=== PATIENT | female | born 1940 | race Caucasian/White ===

== ENCOUNTER 2018-12-20 01:51 | Outpatient (CLI) | payer MEDICARE, SELFPAY ==
[2018-12-20 13:03] LABS: ALT 36 U/L (12-78); AST 25 U/L (15-37); Albumin 3.6 g/dL (3.4-5.0); Alkaline Phosphatase 89 U/L (46-116); Anion Gap 8.7 mmol/L (3-11); Bilirubin, Total 0.5 mg/dL (0.2-1.0); CO2 25.3 mmol/L (21.0-32.0); Calcium 9.1 mg/dL (8.5-10.1); Chloride 102 mmol/L (98-107); Glucose 91 mg/dL (70-100); Potassium 4.3 mmol/L (3.5-5.1); Sodium 136 mmol/L (136-145); Total Protein 6.7 g/dL (6.4-8.2)
[2018-12-20 13:31] LABS: BUN 22 mg/dL (7-18)
== END 2018-12-20 02:11 ==
PROVIDERS: PCP Family Medicine; Visit Provider Family Medicine
DX: I10 Essential (primary) hypertension (principal)
CPT/HCPCS: 36415; 80053

== ENCOUNTER 2019-12-18 21:42 | Outpatient (REF) | payer MEDICARE, SELFPAY ==
[2019-12-18 20:37] LABS: ALT 31 U/L (14-59); AST 23 U/L (15-37); Albumin 4.2 g/dL (3.4-5.0); Alkaline Phosphatase 82 U/L (46-116); Anion Gap 9.9 mmol/L (3-11); BUN 19 mg/dL (7-18); Bilirubin, Total 1.1 mg/dL (0.2-1.0); CO2 28.1 mmol/L (21.0-32.0); CREATININE 1.02 mg/dL (0.55-1.02); Calcium 9.6 mg/dL (8.5-10.1); Chloride 102 mmol/L (98-107); Estimated GFR 52.55 (mL/min/1.73m2); Glucose 101 mg/dL (74-106); Potassium 4.1 mmol/L (3.5-5.1); Sodium 140 mmol/L (136-145); Total Protein 7.4 g/dL (6.4-8.2)
== END 2019-12-18 22:02 ==
LOC: LBN 21:42
PROVIDERS: PCP Family Medicine; Visit Provider Family Medicine
DX: I10 Essential (primary) hypertension (principal)
CPT/HCPCS: 80053

== ENCOUNTER 2021-06-17 02:33 | Outpatient (CLI) | payer MEDICARE, SELFPAY ==
[2021-06-17 16:14] LABS: ALT 24 U/L (14-59); AST 9 U/L (15-37); Albumin 3.9 g/dL (3.4-5.0); Alkaline Phosphatase 77 U/L (46-116); BUN 20 mg/dL (7-18); Bilirubin, Total 0.3 mg/dL (0.2-1.0); CREATININE 0.8 mg/dL (0.55-1.02); Calcium 9.2 mg/dL (8.5-10.1); Chloride 105 mmol/L (98-107); Glucose 88 mg/dL (74-106); Potassium 4.3 mmol/L (3.5-5.1); Sodium 142 mmol/L (136-145); Total Protein 6.8 g/dL (6.4-8.2)
== END 2021-06-17 02:34 | disposition home or self-care (01) ==
LOC: LBO 02:33
PROVIDERS: PCP Family Medicine; Visit Provider Family Medicine
DX: I10 Essential (primary) hypertension (principal)
CPT/HCPCS: 36415; 80053

== ENCOUNTER 2022-03-18 03:19 | Outpatient (CLI) | payer MEDICARE, SELFPAY ==
[2022-03-18 12:57] LABS: ALT 24 U/L (14-59); AST 23 U/L (15-37); Albumin 3.8 g/dL (3.4-5.0); Alkaline Phosphatase 78 U/L (46-116); Anion Gap 8.6 mmol/L (3-11); BUN 18 mg/dL (7-18); Bilirubin, Total 0.9 mg/dL (0.2-1.0); CO2 29.4 mmol/L (21.0-32.0); Calcium 9.5 mg/dL (8.5-10.1); Chloride 103 mmol/L (98-107); Estimated GFR 57.31 (mL/min/1.73m2); Glucose 117 mg/dL (74-106); Potassium 4.2 mmol/L (3.5-5.1); Sodium 141 mmol/L (136-145); Total Protein 7.6 g/dL (6.4-8.2)
== END 2022-03-18 03:20 | disposition home or self-care (01) ==
LOC: LOS 03:19
PROVIDERS: PCP Family Medicine; Visit Provider Family Medicine
DX: I10 Essential (primary) hypertension (principal)
CPT/HCPCS: 36415; 80053

== ENCOUNTER 2022-12-27 10:59 | Emergency (ER) | payer MEDICARE, SELFPAY ==
[2022-12-27] VITALS (33 sets, daily range): BP systolic 130–166; BP diastolic 56–72; PULSE 59–88; RESP 20–32; TEMP 38.1–38.4; O2SAT 91–97
--- NOTE | 2022-12-27 11:00 | DI.CT_ITS ---
Exam(s) CT LUMBAR SPINE SI JOINTS WO EXAM: CT LUMBAR SPINE SI JOINTS WO CLINICAL HISTORY: fall. TECHNIQUE: Imaging Protocol: Axial computed tomography images with coronal and sagittal reformatted images were created and reviewed COMPARISON: CR RT HIP COMPLETE AP PELVIS from 09/19/2014 FINDINGS: Bones: The last intervertebral disc space is designated the L5/S1 level for the numbering purpose of this examination. The vertebral body heights are well maintained. Alignment is satisfactory. No fracture is seen. T12-L1: Mild disc bulging. L1-2: Mild loss of disc height. Endplate osteophytes projecting mainly anteriorly. Mild disc bulgi ng. L2-3: Loss of disc height. Endplate osteophytes and sclerosis. L3-4: Mild to moderate loss of disc height. Mild disc bulging. Facet degenerative changes. L4-5: Not disc bulging. Prominent facet degenerative changes causing mild spondylolisthesis. Facet encroachment into the central canal, causing moderate to severe central canal stenosis. L5-S1: Minimal disc bulging. The visualized SI joints and sacrum are will maintained. Right hip prosthesis partially included in field of view Soft Tissues: The paraspinal soft tissues are unremarkable. Moderate aortic calcification. No bailey dence of aneurysm. IMPRESSION: No evidence of fracture. Multilevel degenerative disc changes. Moderate to severe central canal stenosis mainly secondary to facet encroachment into the central can al at L4-5. RADIATION DOSE DELIVERED: 630.21mGy.cm Total DLP DATA REPOSITORY: All CT scans at this facility are submitted to the National Radiology Data Registry (NRDR) Dose Index Registry (DIR) with the [employer] ([employer]). RADIATION OPTIMIZATION: All CT scans at this facility use at least one of these dose optimization te chniques: automated exposure control; mA and/or kV adjustment per patient size (includes targeted exa ms where dose is matched to clinical indication); or iterative reconstruction.
[2022-12-27 11:34] LABS: Lactate 1.3 mmol/L (0.6-1.4)
--- NOTE | 2022-12-27 11:36 | W.ED.GENAD ---
Discharge Plan Disposition Patient Disposition: Home Discharge Details Clinical Impression: Multiple falls, Acute UTI, Generalized muscle weakness Primary Care Provider: Deborah Henry ED Provider: Sekou Feldman Home Meds and New Rx's Prescriptions: New cephalexin 500 mg capsule 500 mg PO BID Qty: 10 0RF Continued estradiol [Estrace] 0.01 % (0.1 mg/gram) cream 1 g vaginal .twice weekly Qty: 42.5 4RF Rx Instructions: twice weekly Discharge Instructions Instructions: Urinary Tract Infection in Women (ED), Weakness (ED) Additional Instructions: As discussed please continue to monitor symptoms and return immediately to the emergency department for any new or significant worsening of your condition. If you continue to have generalized weakness or do not feel safe in your home please again consider returning to the emergency department for reassessment. Take antibiotics as prescribed and until fully completed. Referrals: Deborah Henry MD, MA [Primary Care Provider] - Discharge Data Discharge Date/Time-TO BE ENTERED AT DEPARTURE: 12/27/22 15:53 Medical Decision Making Patient presenting to the emergency department for chief complaint of generalized weakness for the past 3 days with fever and due to weakness has fallen 3 times at home. She has been able to get up on her own but due to the weakness she is presenting to the emergency department. Patient denies cough, chest pain, nasal congestion sore throat, denies headache, denies abdominal pain nausea vomiting or diarrhea. Does states she has had some ticks on her but denies any prolonged attachment. Or engorgement. Denies any rash. Physical exam shows tenderness to the lower lumbar spine sacrum and SI joints, clear lung sounds, normal HEENT exam, no focal neurological findings noted. Given patient's age we will check patient's labs and will give IV acetaminophen and small fluid bolus pending results due to patient being febrile while here. Reviewed patient's labs and CBC is overall unremarkable with no leukocytosis or significant shift, platelets are slightly low at 98 along with lymphocytes of 0.52 and monocytes of 0.05. CMP does show slightly low potassium at 3.4 and calcium of 8.2 which we will orally replete. BUN slightly elevated at 19 but again I feel that the fluid bolus will be appropriate. Patient does have elevated bilirubin slightly at 1.1, AST of 113 and ALT of 72. Patient does state that she does drink alcohol which I feel may be elevating these labs. At this time I doubt hepatitis given no abdominal pain nausea or vomiting. Patient's lactate is normal at 1.3 and procalcitonin was slightly elevated at 0.6. Urinalysis was received and while it was a contaminated specimen did show high concentration, leukocyte Estrace, and 5-10 white cells with few bacteria being noted. Was also noted some blood protein and ketones as well. I am concerned with UA findings that she may have a urinary tract infection causing the weakness. Given the elevated procalcitonin fever and UA findings will give patient 1 g of Rocephin and place patient on Keflex. Given no specific findings we will hold off on treating for any tickborne illness pending lab results. Patient was able to ambulate through the department and was steady on feet per patient and daughter and while I did offer patient admission patient states she would prefer to go home and monitor symptoms. Patient instructed on low threshold to return especially if she continues to fall or has any new or worsening symptoms. After discussion of diagnosis and plan of care patient and daughter has no further needs, questions, or concerns and states clear understanding to return to the emergency department for any worsening symptoms. This documentation was generated using [employer] dictation system, please disregard any oddities of phrase or misspellings. Imaging Data Radiologic Study: Attestation: I personally reviewed and interpreted this imaging study as follows: Imaging: CT Scan Radiologist's impression: Exam(s) a CT:CT lumbar spine & SI joints wo Exam(s) CT LUMBAR SPINE SI JOINTS WO EXAM: CT LUMBAR SPINE SI JOINTS WO CLINICAL HISTORY: fall. TECHNIQUE: Imaging Protocol: Axial computed tomography images with coronal and sagittal reformatted images were created and reviewed COMPARISON: CR RT HIP COMPLETE AP PELVIS from 09/19/2014 FINDINGS: Bones: The last intervertebral disc space is designated the L5/S1 level for the numbering purpose of this examination. The vertebral body heights are well maintained. Alignment is satisfactory. No fracture is seen. T12-L1: Mild disc bulging. L1-2: Mild loss of disc height. Endplate osteophytes projecting mainly anteriorly. Mild disc bulging. L2-3: Loss of disc height. Endplate osteophytes and sclerosis. L3-4: Mild to moderate loss of disc height. Mild disc bulging. Facet degenerative changes. L4-5: Not disc bulging. Prominent facet degenerative changes causing mild spondylolisthesis. Facet encroachment into the central canal, causing moderate to severe central canal stenosis. L5-S1: Minimal disc bulging. The visualized SI joints and sacrum are will maintained. Right hip prosthesis partially included in field of view Soft Tissues: The paraspinal soft tissues are unremarkable. Moderate aortic calcification. No evidence of aneurysm. IMPRESSION: No evidence of fracture. Multilevel degenerative disc changes. Moderate to severe central canal stenosis mainly secondary to facet encroachment into the central canal at L4-5. Lab Data Lab results reviewed: Yes I reviewed the patient's lab results. HPI General Mode of arrival: EMS. Date/Time Provider Initiated Documentation: 12/27/22 10:59. Limitations to Documentation: no limitations. Information obtained by: patient and RN notes reviewed. History of Present Illness 82 year old F presents to the emergency department with the chief complaint of Fever, generalized weakness, fall, described as mild, and is localized to the back and buttocks. Patient started experiencing this day(s) (3) and it has been constant. No relieving factors improve symptom(s), No exacerbating factors reported . Patient notes no other symptoms.. Patient did receive the following treatments prior to arrival, none Related Data Home Medications Medication Instructions Recorded Confirmed estradiol 0.01% (0.1 mg/gram) 1 g vaginal .twice weekly #42.5 09/28/22 09/28/22 vaginal cream (Estrace) grams cephalexin 500 mg capsule 500 mg PO BID #10 caps 12/27/22 Previous Rx's Medication Instructions Recorded estradiol 0.01% (0.1 mg/gram) 1 g vaginal .twice weekly #42.5 09/28/22 vaginal cream (Estrace) grams cephalexin 500 mg capsule 500 mg PO BID #10 caps 12/27/22 Allergies Allergy/AdvReac Type Severity Reaction Status Date / Time environmental allegies Allergy Uncoded 09/28/22 10:28 General Stated Complaint: Fever SANTO: 3 Review of Systems Constitutional Constitutional: Reports chills, Reports fever(s), Reports frequent falls, Denies headache(s), Reports malaise and Reports weakness ENT Ears, Nose, Mouth, and Throat: Denies dizziness, Denies headache(s), Denies nasal congestion and Denies sore throat Cardiovascular Cardiovascular: Denies chest pain, Denies syncope and Denies dyspnea Respiratory Respiratory: Denies chest congestion, Denies cough and Denies dyspnea Gastrointestinal Gastrointestinal: Denies abdominal pain, Denies diarrhea, Denies nausea and Denies vomiting Genitourinary Genitourinary: Denies difficulty voiding, Denies dysuria, Denies pelvic pain, Denies flank pain, Denies urinary incontinence and Denies urinary hesitancy Musculoskeletal Musculoskeletal: Reports back pain and Denies radiating pain into limb Integumentary/Breasts Skin/Breast: Denies unusual bruising and Denies wounds Neurologic Neurologic: Denies confusion, Denies dizziness, Denies syncope, Reports frequent falls, Denies headache(s), Denies localized weakness and Reports weakness Psychiatric Psychiatric: Denies confusion PFSH All Active Problems Weakness (Acute) Multiple falls (Acute) Acute UTI (Acute) Generalized muscle weakness (Acute) Sensorineural hearing loss, bilateral (Acute) Decreased hearing (Acute) Vaginal atrophy (Acute) Essential hypertension (Chronic) Hallux valgus with bunions (Chronic) RIGHT; bunionectomy 07/25/09 Hip arthritis (Chronic 09/25/14) replacement 2014 Hypercholesterolemia (Chronic) Shoulder pain (Chronic 10/05/07) left Status post bunionectomy (Chronic) Medical History Alcohol intake above recommended sensible limits Cataract (09/23/15) Tobacco use disorder Surgical History BUNIONECTOMY 07/25/09; right; Extraction of cataract 04/21/17 (L) EYE , Ectopic UNILAT SALPINGECTOMY Total replacement of hip DR. VALDIVIA Family History Mother , 62 Glioblastoma Father , 79 Essential hypertension Heart disease Myocardial infarction Sister No problems noted. Brother Alcohol abuse Heart disease Maternal Grandfather , 60+ Cancer Paternal Grandfather , 82 Essential hypertension Heart disease Maternal Grandmother , 89 Essential hypertension Heart disease Stroke Paternal Grandmother , 76 Essential hypertension Heart disease Stroke Brother No problems noted. Brother No problems noted. Social History Smoking/Tobacco Use Status: Former Tobacco Use Quit Date: 07/11/04 Tobacco: How many years used: 50 Second Hand Exposure: Yes Smoking risk assessment performed?: Yes Alcohol Intake: current Alcohol Intake frequency: a few times a month Drug use: Never Substance use type: former substance user Caregiver/Support person: No Household members: none Housing: house Communication Needs: Hard of Hearing Do you need help understanding health information?: Rarely Pets and animals: Yes Pets and animals: other Details: chipmunk Sexually active: No Current gender identity: male and decline to answer What is your relationship status?: How often do you talk on the phone with friends or family?: three or more times per week How often do you get together with friends or relatives?: three or more times per week How often do you attend oriental orthodox or christian services?: 4 or more times per year Do you belong to any clubs or organized social groups?: yes Panel score (0-1 are the most socially isolated patients): 3 What type of physical activity do you participate in: walking Duration: 60-90 minutes/day Frequency: 5-6 times per week Radha/Lutheran: Voodoo Special radha needs: No Seatbelt use: always Helmet use: No Drive intox or ride 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 Do you feel safe at home: Yes Do you feel safe in your relationship?: Yes Exam Const General: cooperative, comfortable and no acute distress Orientation: alert and awake HENMT Head: normal to inspection, normocephalic and atraumatic Ears: hearing grossly normal bilaterally and TM's normal bilaterally General nose exam: external nose normal Face and sinus: no erythema Mouth: oral mucosae normal, no drooling, no muffled voice and no trismus Throat: posterior oropharynx normal Neck Neck: normal visual inspection, full ROM, no lymphadenopathy, no meningeal signs, trachea midline and supple Resp Effort & Inspection: normal respiratory effort and able to speak in complete sentences Auscultation: clear to auscultation bilaterally Cardio Rate: regular rate Rhythm: regular rhythm Heart Sounds: S1 normal, S2 normal and normal S1 and S2 Back/Spine/Pelvis Thoracic/Lumbar Spine: lumbar spinal tenderness Pelvis: buttock tenderness and sciatic notch tenderness Skin General skin exam: no rashes or lesions noted and dry skin (warm) Neuro General: patient alert, patient awake, patient oriented x3, gait normal and moves all extremities Cognition: normal cognition Speech: speech normal Course Vital Signs Vital signs: Vital Signs Temperature 38.1 C H 12/27/22 11:01 Pulse 83 12/27/22 11:01 Respiratory Rate 20 12/27/22 11:01 Blood Pressure 156/72 H 12/27/22 11:01 Pulse Oximetry 95 12/27/22 11:01 Temperature 38.1 C H 12/27/22 11:01 Temperature Source Oral 12/27/22 11:01 Pulse 83 12/27/22 11:01 Respiratory Rate 20 12/27/22 11:01 Respiratory Effort Normal, Non-Labored 12/27/22 11:09 Blood Pressure 156/72 H 12/27/22 11:01 Blood Pressure Position Sitting 12/27/22 11:01 Pulse Oximetry 95 12/27/22 11:01 Pain Level 0 12/27/22 11:01 Lab/Test Results Lab/Test Results: Laboratory Tests Range/Units 12/27/22 11:24 VBG Lactate (0.6-1.4) mmol/L 1.3
[2022-12-27 11:39] LABS: HCT 40.7 % (36.0-46.0); HGB 14.3 g/dL (11.2-15.7); MCH 29.9 pg (27.0-33.0); MCHC 35.1 % (32.0-36.0); MCV 85 fL (80-95); MPV 10.6 fL (8.0-11.0); RBC 4.78 10^6/uL (3.93-5.22); RDW 13.1 % (11.7-14.6); RDW-SD 40.7 fL; WBC 5.24 10^3/uL (4.4-10.8)
[2022-12-27 11:55] LABS: Platelet Count 98 10^3/uL (130-400)
[2022-12-27 11:56] LABS: Absolute Basophil Count 0.05 10^3/uL (0.0-0.2); Absolute Lymphocyte Count 0.52 10^3/uL (1.2-3.4); Absolute Monocyte Count 0.05 10^3/uL (0.1-0.8); Absolute Neutrophil Count 4.61 10^3/uL (1.2-6.7); Atypical Lymphocytes % 1; Bands % 4; Diff Comment Manual Differential; RBC Morphology Normal
[2022-12-27 12:01] LABS: ALT 72 U/L (14-59); AST 113 U/L (15-37); Albumin 3.1 g/dL (3.4-5.0); Alkaline Phosphatase 82 U/L (46-116); Anion Gap 9.9 mmol/L (3-11); BUN 19 mg/dL (7-18); Bilirubin, Total 1.1 mg/dL (0.2-1.0); CO2 25.1 mmol/L (21.0-32.0); CREATININE 0.8 mg/dL (0.55-1.02); Calcium 8.2 mg/dL (8.5-10.1); Chloride 101 mmol/L (98-107); Estimated GFR 74.44 (mL/min/1.73m2); Glucose 107 mg/dL (74-106); Potassium 3.4 mmol/L (3.5-5.1); Sodium 136 mmol/L (136-145); Total Protein 6.3 g/dL (6.4-8.2)
[2022-12-27 12:30] LABS: Procalcitonin 0.6 ng/mL
[2022-12-27 12:35] LABS: COVID-19 PCR Negative (Negative); Influenza A PCR Negative (Negative); Influenza B PCR Negative (Negative); RSV PCR Negative (Negative)
[2022-12-27 12:36] LABS: Source Nasopharynx
[2022-12-27] MEDS: Calcium Carbonate *TUMS* 500 MG CHEW 1000 MG PO (13:00)
[2022-12-27] MEDS: Potassium Chloride 20 MEQ TABCR PO (13:00)
[2022-12-27 13:25] LABS: Bilirubin Moderate (Negative); Blood Small (Negative); Clarity Sl Cloudy (Clear); Glucose Negative (Negative); Ketones 15 mg/dL (Negative); Leukocyte Esterase Trace (Negative); Nitrite Negative (Negative); Specific Gravity >= 1.030 (1.005-1.025); pH 5.5 (5-8)
[2022-12-27 13:44] LABS: Bacteria Few HPF (Negative); C & S Indicated? No/Sq. Contamination; Crystals Negative HPF (Negative); Epithelial Cells Moderate HPF (Negative); Mucus Moderate (Negative)
[2022-12-27] MEDS: Normal Saline 500 ML IV (14:10)
[2022-12-27] MEDS: cefTRIAXone 1 GM/50 ML BAG IVPB (14:11)
[2022-12-29 11:33] LABS: Lyme Ab w Rflx to Lyme Confirm Negative (Negative)
[2022-12-31 08:29] LABS: B. miyamotoi PCR Negative (Negative); Babesia divergens/MO-1 Negative (Negative); Babesia duncani Negative (Negative); Babesia microti Negative (Negative); Ehrlichia chaffeensis Negative (Negative); Ehrlichia ewingii/canis Negative (Negative); Ehrlichia muris eauclairensis Negative (Negative)
[2022-12-31 09:01] LABS: Anaplasma phagocytophilum Positive (Negative)
--- NOTE | 2022-12-31 10:54 | W.ED.FU ---
Follow Up Plan: Contacted patient to discuss results from lab that showed anaplasmosis. Patient does state that she is feeling better but given that she is positive for anaplasmosis and was only prescribed Keflex for suspected UTI patient started on doxycycline. Patient to follow-up with primary care provider return for new or worsening symptoms.
== END 2022-12-27 15:53 | disposition home or self-care (01) ==
PROVIDERS: Emergency Provider Nurse Practitioner Family; PCP Family Medicine
DX: N39.0 Urinary tract infection, site not specified (principal); R53.1 Weakness; A79.82 Anaplasmosis [A. phagocytophilum]; R50.9 Fever, unspecified
CPT/HCPCS: 80053; 84145; 87637; 87798; 96365; 96367; 99284; 72131; 81003; 81015; 83605; 85025; 86618; J0131; J0696

== ENCOUNTER 2023-01-14 02:28 | Outpatient (CLI) | payer MEDICARE, SELFPAY ==
[2023-01-14 14:29] LABS: ESR 13 mm/hr (0-30); HCT 38.1 % (36.0-46.0); HGB 12.8 g/dL (11.2-15.7); MCH 29.6 pg (27.0-33.0); MCHC 33.6 % (32.0-36.0); MCV 88 fL (80-95); MPV 10.1 fL (8.0-11.0); Platelet Count 314 10^3/uL (130-400); RBC 4.32 10^6/uL (3.93-5.22); RDW 12.9 % (11.7-14.6); RDW-SD 41.6 fL; WBC 7.21 10^3/uL (4.4-10.8)
[2023-01-14 14:42] LABS: Bilirubin Negative (Negative); Blood Negative (Negative); Clarity Clear (Clear); Glucose Negative (Negative); Ketones Negative (Negative); Leukocyte Esterase Negative (Negative); Nitrite Negative (Negative); Specific Gravity 1.025 (1.005-1.025); Urobilinogen 0.2 mg/dL (Up to 0.2)
[2023-01-14 15:06] LABS: ALT 29 U/L (14-59); AST 19 U/L (15-37); Albumin 3.4 g/dL (3.4-5.0); Alkaline Phosphatase 111 U/L (46-116); Anion Gap 9.5 mmol/L (3-11); BUN 23 mg/dL (7-18); Bilirubin, Total 0.6 mg/dL (0.2-1.0); CO2 25.5 mmol/L (21.0-32.0); CREATININE 0.9 mg/dL (0.55-1.02); Calcium 9.1 mg/dL (8.5-10.1); Chloride 106 mmol/L (98-107); Estimated GFR 64.63 (mL/min/1.73m2); Glucose 104 mg/dL (74-106); Potassium 4.2 mmol/L (3.5-5.1); Sodium 141 mmol/L (136-145); Troponin I < 50 ng/L (<or=60)
[2023-01-17 10:27] LABS: Lyme Ab w Rflx to Lyme Confirm Negative (Negative)
[2023-01-17 20:40] LABS: Anaplasma phagocytophilum Negative (Negative); B. miyamotoi PCR Negative (Negative); Babesia divergens/MO-1 Negative (Negative); Babesia duncani Negative (Negative); Babesia microti Negative (Negative); Ehrlichia chaffeensis Negative (Negative); Ehrlichia ewingii/canis Negative (Negative); Ehrlichia muris eauclairensis Negative (Negative)
== END 2023-01-14 02:29 | disposition home or self-care (01) ==
LOC: LBO 02:29
PROVIDERS: PCP Family Medicine; Visit Provider Family Medicine
DX: R53.1 Weakness (principal); A77.49 Other ehrlichiosis; I10 Essential (primary) hypertension; E78.00 Pure hypercholesterolemia, unspecified
CPT/HCPCS: 36415; 80053; 85027; 85652; 87798; 81003; 84484; 86618

== ENCOUNTER 2023-12-09 07:57 | Emergency (ER) | payer MEDICARE, SELFPAY ==
[2023-12-09 07:59] VITALS: BP 133/56; PULSE 78; RESP 16; TEMP 36.7; O2SAT 98
--- NOTE | 2023-12-09 08:08 | ED.GENADUL_ITS ---
Discharge Plan Disposition Patient Disposition: Against Medical Advice Condition: Stable Discharge Details Clinical Impression: Syncope Primary Care Provider: Deborah Henry ED Provider: Bennie Holm Home Meds and New Rx's Prescriptions: No Action No Known Home Meds Discharge Instructions Instructions: Syncope (ED) Additional Instructions: You were seen in the emergency department for your subjective chills and fever this morning led to an episode of brief fainting or syncope. This is a concerning sign of cardiac syndrome or acute coronary syndrome. You left prior to a definitive rule out of any acute coronary syndrome or heart attack. Your tick panel is pending and should result in the next 4 to 5 days. Please call the ER if you have not heard. Otherwise your blood work shows no signs of infection, show no signs of acute dehydration. You acknowledge the risks of leaving AGAINST MEDICAL ADVICE for possible undiagnosed acute coronary syndrome without a repeat troponin test. You did have an elevated lab of BNP which can be a sign of strain on the heart. Your EKG was normal and your chest x-ray showed no acute pathology. Please return to the emergency department for any further episodes of fainting especially with sweating or diaphoresis, any shortness of breath, any dizziness. Please note patient left while I was dictating this paperwork, left abruptly and nearly marched out with her IV in place. Referrals: Deborah Henry [place], [place] [Primary Care Provider] - Discharge Data Discharge Date/Time-TO BE ENTERED AT DEPARTURE: 12/09/23 10:37 HPI General Date/Time Provider Initiated Documentation: 12/09/23 07:58 . HPI Narrative: 83 year-old female presents to ED today by POV/ambulating with a chief complaint of fever/chills, brief syncopal event sliding out of her chair this morning with onset around 0730- has had chills for 2-3 days. States body aches as well. Quality described as feels like an episode of anaplasmosis last year- has had tick bites this year, no radiation to chest pain, shortness of breath, visual changes, abdominal pain, nausea/vomiting, does endorse minor headstrike when she syncopized but denies any headache or nausea, acting herself afterwards per . Severity is described as moderate. Palliating factors include nothing specific. Provoking factors include tick bites this year. Patient not anticoagulated. Related Data Home Medications Medication Instructions Recorded Confirmed Unknown [No Known Home Meds] 12/09/23 12/09/23 Allergies Allergy/AdvReac Type Severity Reaction Status Date / Time environmental allegies Allergy Rhinitis Uncoded 10/24/23 09:57 General Stated Complaint: [facility]Medical SANTO: 3 Review of Systems All systems reviewed & are unremarkable except as noted in HPI and below Exam Narrative Exam Narrative: GENERAL APPEARANCE: Well-nourished, non-toxic, awake and alert, atraumatic, no acute distress. SKIN: Warm, pink, dry, intact, without rashes/lesions/ulcerations. HEAD: Normocephalic, atraumatic, normal hair distribution for gender/age. EYES: Pupils PERRLA, EOMs intact without nystagmus, normal conjunctiva, no exudates on lids/lashes. ENT: Nares patent, no circumoral cyanosis, no facial swelling NECK: Supple, trachea midline, painless cervical ROM. LUNGS/CHEST: Lungs CTA bilaterally- no rhonchi/rales/wheezes diffusely, non- labored respirations, normal A/P diameter, symmetrical expansion, no chest wall deformity HEART (CV/PV): Regular rate and rhythm without murmur, no peripheral edema, no JVD. ABDOMEN: Soft, non-distended, no guarding, no tenderness. MSK: Normal ROM, no swelling/deformity to bilateral UEs or LEs, moving all extremities without weakness, no cyanosis, spine midline without tenderness, normal curvature. NEURO: Mental Status AAOx4 - alert to person, place, time, events No facial droop, no forehead involvement. Motor: No focal weakness - strength 5/5 in bilateral UEs and LEs, proximal and distal, symmetric. Sensory: sensation intact to light touch globally. Gait normal: patient ambulated without ataxia into ED room. PSYCH: euthymic, cooperative, pleasant, appropriate speech Course Vital Signs Vital signs: Vital Signs Temperature 36.7 C 12/09/23 07:59 Pulse 78 12/09/23 07:59 Respiratory Rate 16 12/09/23 07:59 Blood Pressure 133/56 L 12/09/23 07:59 Pulse Oximetry 98 12/09/23 07:59 Temperature 36.7 C 12/09/23 07:59 Temperature Source Tympanic 05/31/24 07:59 Pulse 78 12/09/23 07:59 Respiratory Rate 16 12/09/23 07:59 Blood Pressure 133/56 L 12/09/23 07:59 Blood Pressure Position Sitting 12/09/23 07:59 Pulse Oximetry 98 12/09/23 07:59 Oxygen Delivery Method Room Air 12/09/23 07:59 Oxygen Flow Rate 0 12/09/23 07:59 Pain Level 0 12/09/23 07:59 Medical Decision Making This dictation utilizes [id number] dictation software and may contain unedited grammatical errors. 83 y/o F presents to ED today with a chief complaint of syncopal episode this morning around 630 or 7. Endorses some chills and sweats at the time, states she has been bit by ticks and feels like she has anaplasmosis with bodyaches. Denies chest pain, denies cough or shortness of breath. Patients' medical history: History of anaplasmosis, hypertension, hypercholesterolemia, noncompliance with medications. Family and social history: Lives at home with , eats normal diet, no recent travel history or sick contacts. Pertinent exam findings / vital signs include stable vitals, benign abdomen, benign cardiopulmonary exam, neuro intact. Differential / pathologies of concern include tickborne illness, acute coronary syndrome, pneumonia, viral syndrome, orthostatic hypotension, syncope. Diagnostic studies of: -POC COVID/flu antigen, CBC, CMP, lipase, troponin + serial troponin, BNP, CRP, lactate, procalcitonin, blood cultures, tick panel, urinalysis, EKG, chest x- ray. -CBC is benign, CMP shows no acute abnormalities -BNP is elevated to 954, initial troponin negative -lipase -Lactate neg, procal neg -CXR clear -POC Covid/flu neg -EKG shows no signs of STEMI -sinus rhythm at 63 bpm with P waves followed by narrow complex QRS, normal axis deviation, normal QT QTc, likely sinus arrhythmia seen in EKG, no ST changes of ischemia, poor R wave progression -Tick Panel pending -Blood Cx's pending -UA collected and pending at time of AMA - micro resulted 10-20 WBCs, reflexed urine Cx Interventions of: -Patient signed out AMA prior any interventions. ED Course/Assessment/Plan: 83-year-old female presents with some chills and fever with an episode of brief syncope this morning sliding out of her chair. She states she feels like she did last year when she had anaplasmosis, I did inform the patient that I was concerned about her cardiac status due to diaphoresis sometimes being a symptom of cardiac arrhythmia especially concerning with her syncope. Patient states she does not want to wait for repeat troponin, states that she only came here for tick panel testing, I did discuss with her and her that we were possibly not diagnosing acute coronary syndrome which is a potentially fatal condition, patient was of sound mind to make this decision to leave AGAINST MEDICAL ADVICE and acknowledged the risks of potentially undiagnosed cardiac or other etiology. Patient left without paperwork. Findings not consistent with cardiac rule out, no abnormalities on CBC to suggest infection at this time, remained afebrile. Disposition of Syncope. Patient verbalized understanding of the plan and return to ED criteria and engaged in shared decision making. Signed out AGAINST MEDICAL ADVICE. Medical Records Medical records reviewed: Yes I reviewed the patient's medical records. Imaging Data Radiologic Study: Attestation: I personally reviewed and interpreted this imaging study as follows: Imaging: X-Ray Radiologist's impression: EXAM: XR CHEST 2V PA LATERAL CLINICAL HISTORY: syncope TECHNIQUE: 2D digital imaging was performed. Two views. COMPARISON: No exams were available for comparison FINDINGS: HEART: Normal size. Aorta: Not dilated. PULMONARY VASCULATURE: Normal. LUNGS: Clear. PLEURAL SPACE: No pleural effusion or pneumothorax. BONE:Unremarkable for age. Soft tissues: Unremarkable. IMPRESSION: No acute abnormality. Lab Data Lab results reviewed: Yes I reviewed the patient's lab results. Labs: 12/09/23 09:10 Blood Blood Culture - Pending 12/09/23 09:00 Blood Blood Culture - Pending Laboratory Tests Range/Units 12/09/23 08:20 WBC (4.4-10.8) 10^3/uL 4.95 RBC (3.93-5.22) 10^6/uL 5.04 Hgb (11.2-15.7) g/dL 14.8 Hct (36.0-46.0) % 45.0 MCV (80-95) fL 89 MCH (27.0-33.0) pg 29.4 MCHC (32.0-36.0) % 32.9 RDW (11.7-14.6) % 12.6 Plt Count (130-400) 10^3/uL 201 MPV (8.0-11.0) fL 9.8 Immature Gran % % 0.4 Neutrophils % % 79.2 Lymphocytes % % 12.9 Monocytes % % 6.9 Eosinophils % % 0.0 Basophils % % 0.6 Nucleated RBC % (0.0-0.3) % 0.0 Absolute Neutrophils (1.2-6.7) 10^3/uL 3.92 Absolute Lymphocytes (1.2-3.4) 10^3/uL 0.64 L Absolute Monocytes (0.1-0.8) 10^3/uL 0.34 Absolute Eosinophils (0.0-0.7) 10^3/uL 0.00 Absolute Basophils (0.0-0.2) 10^3/uL 0.03 VBG Lactate (0.6-1.4) mmol/L 0.8 Sodium (136-145) mmol/L 136 Potassium (3.5-5.1) mmol/L 4.0 Chloride (98-107) mmol/L 100 Carbon Dioxide (21.0-32.0) mmol/L 28.1 Anion Gap (3-11) mmol/L 7.9 BUN (7-18) mg/dL 14 Creatinine (0.55-1.02) mg/dL 1.0 Est GFR (CKD-EPI 2020) (mL/min/1.73m2) 56.60 Glucose (74-106) mg/dL 123 H Calcium (8.5-10.1) mg/dL 9.1 Total Bilirubin (0.2-1.0) mg/dL 0.8 AST (15-37) U/L 28 ALT (14-59) U/L 36 Alkaline Phosphatase (46-116) U/L 84 Troponin I (< or =60) ng/L < 50 C-Reactive Protein (<or=0.5) mg/dL 0.62 H NT-Pro-B Natriuret Pep (<300) pg/mL 954 H Total Protein (6.4-8.2) g/dL 7.2 Albumin (3.4-5.0) g/dL 3.7 Lipase (16-77) U/L 23 Procalcitonin ng/mL 0.1 Quality:SDOH Health Related Social Needs: No Data to Display PFSH All Active Problems Syncope (Chronic) Anaplasmosis (Acute) Weakness (Acute) Sensorineural hearing loss, bilateral (Acute) Decreased hearing (Acute) Vaginal atrophy (Acute) Essential hypertension (Chronic) Hallux valgus with bunions (Chronic) RIGHT; bunionectomy 07/25/09 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 VALDIVIA , Ectopic UNILAT SALPINGECTOMY Extraction of cataract 04/21/17 (L) EYE BUNIONECTOMY 07/25/09; right; Family History Mother , 62 Glioblastoma Father , 79 Essential hypertension Heart disease Myocardial infarction Sister No problems noted. Brother Alcohol abuse Heart disease Maternal Grandfather , 60+ Cancer Paternal Grandfather , 82 Essential hypertension Heart disease Maternal Grandmother , 89 Essential hypertension Heart disease Stroke Paternal Grandmother , 76 Essential hypertension Heart disease Stroke Brother No problems noted. Brother No problems noted. Social History Smoking/Tobacco Use Status: Former Tobacco Use Quit Date: 07/11/04 Tobacco: How many years used: 50 Second Hand Exposure: Yes Smoking risk assessment performed?: Yes Alcohol Intake: current Alcohol Intake frequency: a few times a month Drug use: Never Substance use type: former substance user Caregiver/Support person: No Household members: none Housing: house Communication Needs: Hard of Hearing Do you need help understanding health information?: Rarely Pets and animals: Yes Pets and animals: other Details: chipmunk Sexually active: No Current gender identity: male and decline to answer What is your relationship status?: How often do you talk on the phone with friends or family?: three or more times per week How often do you get together with friends or relatives?: three or more times per week How often do you attend yarsanism or baptism services?: 4 or more times per year Do you belong to any clubs or organized social groups?: yes Panel score (0-1 are the most socially isolated patients): 3 What type of physical activity do you participate in: walking Duration: 60-90 minutes/day Frequency: 5-6 times per week Radha/Jainism: Pentecostalism Special radha needs: No Seatbelt use: always Helmet use: No Drive intox 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
--- NOTE | 2023-12-09 08:15 | DI.RAD_ITS ---
Exam(s) XR CHEST 2V PA LATERAL EXAM: XR CHEST 2V PA LATERAL CLINICAL HISTORY: syncope TECHNIQUE: 2D digital imaging was performed. Two views. COMPARISON: No exams were available for comparison FINDINGS: HEART: Normal size. Aorta: Not dilated. PULMONARY VASCULATURE: Normal. LUNGS: Clear. PLEURAL SPACE: No pleural effusion or pneumothorax. BONE:Unremarkable for age. Soft tissues: Unremarkable. IMPRESSION: No acute abnormality. DATA REPOSITORY: RADIATION DOSE DELIVERED:
--- NOTE | 2023-12-09 08:15 | RT.EKG_ITS ---
APPROVED REPORT Exam: Resting ECG Reason for Exam: syncope Patient Location: E HR:63 bpm ECG Measurements Heart Rate 63 AXIS MD 150 P 71 QRSd 91 QRS 40 QT 379 T 42 QTc 387 Conclusion Sinus rhythm 63 no stemi
[2023-12-09 08:28] LABS: Lactate 0.8 mmol/L (0.6-1.4)
[2023-12-09 08:29] LABS: Abs Immature Grans 0.02 10^3/uL (0.0-0.06); Absolute Basophil Count 0.03 10^3/uL (0.0-0.2); Absolute Lymphocyte Count 0.64 10^3/uL (1.2-3.4); Absolute Monocyte Count 0.34 10^3/uL (0.1-0.8); Absolute Neutrophil Count 3.92 10^3/uL (1.2-6.7); Basophils % 0.6 %; HGB 14.8 g/dL (11.2-15.7); Immature Grans % 0.4 %; Lymphocytes % 12.9 %; MCH 29.4 pg (27.0-33.0); MCHC 32.9 % (32.0-36.0); MCV 89 fL (80-95); MPV 9.8 fL (8.0-11.0); Monocytes % 6.9 %; Neutrophils % 79.2 %; Platelet Count 201 10^3/uL (130-400); RBC 5.04 10^6/uL (3.93-5.22); RDW 12.6 % (11.7-14.6); RDW-SD 41.8 fL; WBC 4.95 10^3/uL (4.4-10.8)
[2023-12-09 08:52] LABS: ALT 36 U/L (14-59); AST 28 U/L (15-37); Albumin 3.7 g/dL (3.4-5.0); Alkaline Phosphatase 84 U/L (46-116); Anion Gap 7.9 mmol/L (3-11); BUN 14 mg/dL (7-18); Bilirubin, Total 0.8 mg/dL (0.2-1.0); C-Reactive Protein 0.62 mg/dL (<or=0.5); CO2 28.1 mmol/L (21.0-32.0); Calcium 9.1 mg/dL (8.5-10.1); Chloride 100 mmol/L (98-107); Glucose 123 mg/dL (74-106); Lipase 23 U/L (16-77); NT-proBNP 954 pg/mL (<300); Sodium 136 mmol/L (136-145); Total Protein 7.2 g/dL (6.4-8.2); Troponin I < 50 ng/L (< or =60)
[2023-12-09 09:00] LABS: Procalcitonin 0.1 ng/mL
[2023-12-09 10:22] LABS: Bilirubin Negative (Negative); Blood Small (Negative); Clarity Clear (Clear); Glucose Negative (Negative); Ketones Negative (Negative); Leukocyte Esterase Small (Negative); Nitrite Negative (Negative); Specific Gravity 1.025 (1.005-1.025); Urobilinogen 0.2 mg/dL (Up to 0.2)
[2023-12-09 10:36] LABS: Bacteria Few HPF (Negative); Epithelial Cells Few HPF (Negative); Other Cells Negative (Negative)
[2023-12-09 10:37] LABS: C & S Indicated? Yes; Casts 0-2 Hyaline LPF (Negative); Crystals Negative HPF (Negative); Mucus Moderate (Negative)
[2023-12-12 13:45] LABS: Lyme Ab w Rflx to Lyme Confirm Negative (Negative)
[2023-12-12 17:50] LABS: Anaplasma phagocytophilum Positive (Negative); B. miyamotoi PCR Negative (Negative); Babesia divergens/MO-1 Negative (Negative); Babesia duncani Negative (Negative); Babesia microti Negative (Negative); Ehrlichia chaffeensis Negative (Negative); Ehrlichia ewingii/canis Negative (Negative); Ehrlichia muris eauclairensis Negative (Negative)
== END 2023-12-09 10:37 | disposition left against medical advice (07) ==
PROVIDERS: Emergency Provider Physician Assistant; PCP Family Medicine
DX: R50.9 Fever, unspecified (principal); R55 Syncope and collapse; Z87.891 Personal history of nicotine dependence; Z53.29 Procedure and treatment not carried out because of patient's decision for other reasons
CPT/HCPCS: 36410; 80053; 83690; 84145; 87040; 87077; 87798; 93005; 99285; 71046; 81003; 81015; 83605; 83880; 84484; 85025; 86140; 86618; 87086; 87186; 93010; 99284

== ENCOUNTER 2025-06-13 11:42 | Outpatient (CLI) | payer MEDICARE, SELFPAY ==
[2025-06-13 16:10] LABS: ALT 14 U/L (10-49); AST 23 U/L (<34); Albumin 4.5 g/dL (3.2-5.0); Alkaline Phosphatase 76 U/L (46-116); Anion Gap 9.2 mmol/L (3-11); BUN 20 mg/dL (9-23); Bilirubin, Total 0.70 mg/dL (0.2-1.2); CO2 26.8 mmol/L (20.0-31.0); Calcium 9.9 mg/dL (8.3-10.6); Chloride 106 mmol/L (98-107); Glucose 93 mg/dL (74-106); Potassium 4.4 mmol/L (3.5-5.1); Sodium 142 mmol/L (136-145); Total Protein 7.3 g/dL (5.7-8.2)
[2025-06-13 16:12] LABS: Vitamin B12 409 pg/mL (211-911)
== END 2025-06-13 11:43 | disposition home or self-care (01) ==
PROVIDERS: PCP Family Medicine; Visit Provider Family Medicine
DX: E53.8 Deficiency of other specified B group vitamins (principal); I10 Essential (primary) hypertension
CPT/HCPCS: 36415; 80053; 82607